=== PATIENT | female | born 1960 | race African-American/Black ===

== ENCOUNTER 2019-04-02 18:19 | Inpatient (IN) | payer OTHER ==
[~2019-04-02] VITALS: Ht 160 cm; Wt 105.7 kg
--- NOTE | ~2019-04-02 | O ---
[facility] [place] [address] OPERATIVE REPORT Name: STONEY OSPINA Room #: 438-P ADM IN M.R.#: [id number] Admission: 04/02/19 Attend Phys: Juan Lamb Discharge: Date of : 58 Report #: [id number] THIS REPORT FOR: cc: Bello Chandler MD,Bello Nair,Ousmane Cottrell MD ~ CC: Juan Chandler DATE OF SERVICE: 04/03/2019 PREOPERATIVE DIAGNOSES: 1. Right ischial pressure ulcer, 10 x 10 cm down to bone. 2. Left ischial pressure ulcer, stage 4, 8 x 8 cm. POSTOPERATIVE DIAGNOSES: 1. Right ischial pressure ulcer, 10 x 10 cm down to bone. 2. Left ischial pressure ulcer, stage 4, 8 x 8 cm. OPERATIONS: 1. Placement of left internal jugular vein central line. 2. Excisional debridement of right ischial tuberosity and pressure ulcer with debridement down through the bone, 10 x 10 cm. 3. Debridement of left ischial tuberosity pressure ulcer, down through muscle, 8 x 8 cm. SURGEON: Ousmane Nair M.D. ANESTHESIA: General. ESTIMATED BLOOD LOSS: Minimal. SPECIMENS: 1. Right ischial wound, deep tissue culture. 2. Right ischial bone biopsy. DESCRIPTION OF PROCEDURE: After informed consent was obtained, the patient was brought to the operating room and placed supine. SCDs were placed and working, preoperative antibiotics were administered, general anesthesia was induced after I placed a central line. This was at a medical necessity as she had no IV access. The left neck was prepped and draped in the usual sterile fashion. Under ultrasound guidance, I cannulated the left internal jugular vein. Wire was placed easily. Dilator was placed. Catheter was placed to 16 cm. It flushed and felice easily. The patient then underwent general anesthesia. She was placed in the left [address] [address] OPERATIVE REPORT Name: STONEY OSPINA Room #: 438-P [facility] IN M.R.#: [id number] Admission: 04/02/19 Attend Phys: Juan Lamb Discharge: Date of : 58 Report #: [id number] lateral decubitus position with all bony prominences protected and an axillary roll. The area was then prepped and draped in the usual sterile fashion. Debridement was then undertaken. On the right side, this was an excisional debridement. Depth was down through the bone; 100% of the wound was debrided. Post-debridement wound area was 10 x 10 cm. I used a rongeur to debride away some of the bone and send it for culture. Deep tissue was excised and sent for culture as well. Examination of the right ischium demonstrated pressure ulcer and this was debrided also. This was excisional. Depth was down through the muscle; 100% of the wound was debrided. Post-debridement wound area was 8 x 8 cm. There were no complications and the wound beds were fair. I packed the wound beds with sterile gauze. Sterile dressings were applied. COMPLICATIONS: None. DISPOSITION: The patient was taken to recovery in satisfactory condition. By: 1803 1820 Ousmane Nair MD /nt
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
[~2019-04-02 18:19] MED LIST: AMARYL4 MG PO; AMBIEN 5 MG TABL5 M1 PO; AMBIEN CR 6.26.25 MG PO; ATORVASTATIN CA40 MG PO; BACLOFEN20 MG PO; BISACODYL SUPP10 MG RECTAL; BUSPAR30 MG PO; CEPACOL SORE T1 EAC7 MM; COLACE100 MG PO; ENOXAPARIN40 MG/0.1 SUBQ; FENTANYL 0.50 MCG/ML IV PUSH; GLUCOPHAGE1000 MG PO; IRON325 PO; LANTUS SUBQ; LEVEMIR SUBQ; LIDODERM 5%1 PATCH TOP; MAG-AL PLUS SUS30 ML PO; MILK OF MA2400 MG/10 PO; MIRALAX17 GM PO; NITROFURANTOIN50 M4 PO; NORCO 10-325 T1 EACH PO; NOVOLOG100 UNIT/1 SUBQ; ONDANSETRON2 MG/1 ML IV; PERCOCET 10-321 EACH PO; PHENASEPTIC1 BOT MUCOUS MEM; PRAVACHOL40 MG PO
--- NOTE | 2019-04-02 18:51 | NUR ---
ASSUMED CARE OF THE PT AT 1800. PT IS A&OX4. NO C/O PAIN. PT IS RA. NO DIET INFORMATION IN SYSTEM YET. CALL LIGHT IS WITHIN REACH, BED IN THE LOWEST POSITION, AND CALL LIGHT IS IWTHIN REACH. WILL CONTINUE TO MONITOR THE PT.
[2019-04-02 20:15] LABS: HEMATOCRIT 26.3 % (37.0-47.0); HEMOGLOBIN 7.7 gm/dL (12.0-15.0); MCH 19.5 pg (26.0-34.0); MCHC 29.2 g/dL (28.0-37.0); PLATELET COUNT 537 thou/uL (150-400); RBC 3.93 mil/uL (4.20-5.00); RDW 19.4 % (10.5-14.5); WBC 14.7 thou/uL (4.0-11.0)
[2019-04-02 20:28] LABS: ALBUMIN 1.8 g/dL (3.4-5.0); CALCIUM 9.2 mg/dL (8.5-10.1); CREATININE 0.7 mg/dL (0.6-1.0); MAGNESIUM 1.4 mg/dL (1.8-2.4); POTASSIUM 3.9 mmol/L (3.5-5.1); TOTAL BILIRUBIN 0.1 mg/dL (<0.1-1.0); TOTAL PROTEIN 7.8 g/dL (6.4-8.2)
[2019-04-02 20:36] VITALS: BP 153/66
[2019-04-02 20:51] LABS: ABSOLUTE NEUTROPHILS 12.9 thou/uL (1.4-8.2); ANISOCYTOSIS 1+
[2019-04-02 20:52] LABS: HYPOCHROMASIA 1+; MICROCYTES 2+; POLYCHROMASIA OCCASIONAL
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
[2019-04-03 08:01] LABS: CALCIUM 8.7 mg/dL (8.5-10.1); CREATININE 0.7 mg/dL (0.6-1.0); MAGNESIUM 1.6 mg/dL (1.8-2.4)
[2019-04-03 08:02] LABS: HEMATOCRIT 26.4 % (37.0-47.0); HEMOGLOBIN 7.8 gm/dL (12.0-15.0); MCH 19.6 pg (26.0-34.0); MCHC 29.4 g/dL (28.0-37.0); MCV 66.7 fL (80.0-100.0); PLATELET COUNT 559 thou/uL (150-400); RBC 3.95 mil/uL (4.20-5.00); WBC 12.8 thou/uL (4.0-11.0)
[2019-04-03 08:10] VITALS: BP 88/45
[2019-04-03 08:47] LABS: ABSOLUTE NEUTROPHILS 10.2 thou/uL (1.4-8.2); ANISOCYTOSIS 2+; HYPOCHROMASIA 2+; MICROCYTES 2+; PLATELET ESTIMATE INCREASED; POLYCHROMASIA SLIGHT
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
--- NOTE | 2019-04-03 10:02 | NUR ---
When diet able to advance s/p surgery, REC limiting meals to 3-4 carb choices per meal with 1500 kcal carb controlled diet to help keep BGs better controlled given wound healing needs.
--- NOTE | 2019-04-03 14:40 | NUR ---
REPORT RECEIVED FROM MARGUERITE BROWN, PT ASSESSED, VSS, BP 88/45, DR ORDERED IVF TO HELP BRING UP BP. PT'S WOUNDS ASSESSED, PICS TAKEN WITH STEPHANIE, DOCUMENTED ON CHART, DISCUSSED PLAN OF CARE WITH PT, SHE VERBALIZED UNDERSTANDING, SURGEON CAME AND SPOKE WITH PT ABOUT DEBRIDMENT. PT LEFT FOR SURGERY ABOUT 1305.
--- NOTE | 2019-04-03 16:47 | NUR ---
PT ADMITTED RELATED TO ISCHIAL WOUND DEBRIDEMENT. CM REVIEWED CHART AND SPOKE WITH CARE TEAM. CM MET WITH PT AT BEDSIDE THIS DAY. PT IS ALERT TO SELF. PT INDICATED SHE LIVES AT A SHELTER BUT COULDN'T RECALL NAME. PT RESIDES AT [facility]. CLINICAL UPDATES SENT TO FACILITY PT HAD I&D THIS DAY. PT INDICATED SHE ANTICIPATES RETURNING TO [place] ONCE MEDICALLY STABLE. IF THEY WANT TO SKILL PT SHE WOULD NEED 3 MIDNIGHTS AND WOULD NEED TO BE HERE UNTIL SATURDAY. IF PT SHOULD BE MEDICALLY STABLE TO DC OVER WEEKEND CONTACT TO NOTIFY AND SET UP TRANSPORT FAX ORDERS TO .
[2019-04-03 20:40] VITALS: BP 127/57
[2019-04-03 23:08] LABS: GLYCOHEMOGLOBIN (HGB A1C) 9.6 % (4.8-5.6)
[2019-04-04 04:30] VITALS: BP 112/53
--- NOTE | 2019-04-04 05:10 | NUR ---
ASSUMED PT CARE AROUND 1900. A&OX4. C/O BACK AND NECK PAIN. PAIN MEDICATION GIVEN. REPOSITIONED TO PREVENT FURTHER SKIN BREAKDOWN. IVF AND IV ABX GIVEN ORDERED. DRESSINGS CHANGED TO SCARUM, RIGHT I.T. AND LEFT I.T. WOUNDS. COLOSTOMY APPLICANCE CHANGED PER PT REQUEST. FALL PRECAUTIONS IN PLACE. PROGRESSING SLOWLY TOWARD POC GOALS.
[2019-04-04 06:22] LABS: HEMATOCRIT 27.4 % (37.0-47.0); HEMOGLOBIN 8.1 gm/dL (12.0-15.0); MCH 19.9 pg (26.0-34.0); MCHC 29.4 g/dL (28.0-37.0); MCV 67.6 fL (80.0-100.0); RBC 4.05 mil/uL (4.20-5.00); RDW 19.1 % (10.5-14.5); WBC 9.6 thou/uL (4.0-11.0)
[2019-04-04 06:34] LABS: % SATURATION 10 % (20-39); IRON 14 ug/dL (50-170); TIBC 143 ug/dL (250-450)
[2019-04-04 07:30] LABS: URINE BILIRUBIN NEGATIVE (Negative); URINE BLOOD NEGATIVE (Negative); URINE COLOR YELLOW; URINE GLUCOSE-RANDOM* NEGATIVE (Negative); URINE KETONES NEGATIVE (Negative); URINE NITRITE-REFLEX NEGATIVE (Negative); URINE SPECIFIC GRAVITY 1.015 (1.005-1.035); URINE UROBILINOGEN 0.2 E.U./dl (0.2-1.0)
[2019-04-04 07:59] VITALS: BP 132/72
[2019-04-04 08:28] LABS: URINE LEUKOCYTES-REFLEX 1+ (Negative)
[2019-04-04 08:29] LABS: URINE CLARITY SL HAZY; URINE PROTEIN (DIPSTICK) 1+ (Negative)
[2019-04-04 08:35] LABS: CASTS None Seen /LPF (None Seen); SQUAMOUS >10 Many /LPF (0-3)
[2019-04-04 08:36] LABS: BACTERIA-REFLEX 1-9 Few /HPF (None Seen); CRYSTALS None Seen /LPF (None Seen); URINE RBC 0-2 Rare /HPF (0-2); URINE WBC-REFLEX 6-15 Few /HPF (0-5)
[2019-04-04 08:37] LABS: MUCUS 0-3 Light strn/LPF (None Seen); WBC CLUMPS Rare (None Seen)
[2019-04-04 08:46] VITALS: BP 132/72
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
[2019-04-04 16:20] VITALS: BP 118/58
--- NOTE | 2019-04-04 18:09 | NUR ---
ASSUMED CARE PT SHIFT CHANGE. ASSESSMENT CHARTED. MEDS GIVEN PER APR. PT ALERT AND ORIENTED. VSS. DENIES PAIN. O2 SATS WNL ON ROOM AIR. NO C/O SOB/CP. PT IS PARAPLEGIC, Q2 TURNS ENFORCED. WOUNDS CHANGED/DRESSED PER ORDERS. PT APPETITE ADEQUATE. BLOOD SUGARS MANAGED WELL. PT VISITED WITH SISTER THIS SHIFT. PT CURRENTLY EATING DINNER IN BED, DENIES OF NEEDS/CONCERNS AT THIS TIME. WILL CONT TO MONITOR AND FOLLOW POC.
[2019-04-04 19:05] VITALS: BP 107/53
--- NOTE | 2019-04-04 22:56 | NUR ---
1855 ASSUMED CARE OF PT AFTER BEDSIDE REPORT 2100 ASSESSMENT COMPLETED, BANDAGES TO SACRAL AREA WOUNDS IN PLACE C/D/I PRESSURE AREA TO RHEEL CLOSED WITH NO OPEN AREA, CLIENT WILL BE TURNED Q2 HOURS TO PREVENT CONTINUED PRESSURE TO SACRAL AREA, SCD'S ON, FALL PRECAUTIONS IN PLACE. IV INFUSING WITH NO DIFFICULTY. PT EATING SNACK PRIOPR TO INSULIN GLARG PER APR. COLOSTOMY WITH SMALL AMOUNT OF SOFT BROWN STOOL, SUPRAPUBIC CATH DRAINING WITH ADEQUATE URINE, WILL CONTINUE WITH HOURLY ROUNDING.
[2019-04-05 05:00] VITALS: BP 132/59
[2019-04-05 07:51] LABS: HEMATOCRIT 24.3 % (37.0-47.0); HEMOGLOBIN 7.1 gm/dL (12.0-15.0); MCH 19.6 pg (26.0-34.0); MCHC 29.1 g/dL (28.0-37.0); MCV 67.2 fL (80.0-100.0); RBC 3.61 mil/uL (4.20-5.00); RDW 19.4 % (10.5-14.5); WBC 8.2 thou/uL (4.0-11.0)
[2019-04-05 08:13] LABS: PLATELET COUNT 519 thou/uL (150-400)
[2019-04-05 10:26] LABS: ABSOLUTE NEUTROPHILS 5.3 thou/uL (1.4-8.2); ANISOCYTOSIS 2+
[2019-04-05 10:27] LABS: HYPOCHROMASIA 3+; MICROCYTES 2+
--- NOTE | 2019-04-05 15:23 | NUR ---
VSS-AFEBRILE. LUNGS CLEAR-ROOM AIR. ALERT AND ORIENTED X 4. CHANGED COCCYX DRESSING TWICE THIS SHIFT DUE TO SATURATED DRESSING. DRAINAGE IS SEROSANGUINEOUS, AND THERE WAS NO ODOR. TURNED EVERY TWO HOURS TO AVOID PRESSURE TO THE AREA. BED BATH AND LINEN CHANGE. ORAL PAIN MEDICATION PARTIALLY RELIEVES NECK AND BACK DISCOMFORT. GOOD APPETITE. CALLS APPROPRIATELY FOR ANY NEEDED ASSISTANCE.
[2019-04-05 17:31] VITALS: BP 111/54
[2019-04-05 19:10] VITALS: BP 124/44
--- NOTE | 2019-04-06 03:24 | NUR ---
ASSUMED PT CARE AT 1900. PT REPORTS MINIMAL PAIN, JUST UNCOMFORTABLE IN BACK. PM MEDS GIVEN, ANTIBIOTICS INFUSING PER ORDER. COLOSTOMY AND SAINI WITH GOOD OUTPUT. NEW IV PLACED IN LEFT CHEST DUE TO PAIN AT OTHER SITE. CURRENTLY RESTING COMFORTABLY IN BED.
[2019-04-06 04:33] VITALS: BP 122/53
[2019-04-06 07:38] VITALS: BP 123/53
[2019-04-06 08:06] LABS: HEMATOCRIT 24.2 % (37.0-47.0); HEMOGLOBIN 7.3 gm/dL (12.0-15.0); MCH 20.2 pg (26.0-34.0); MCHC 30.1 g/dL (28.0-37.0); MCV 66.9 fL (80.0-100.0); RBC 3.61 mil/uL (4.20-5.00); RDW 19.4 % (10.5-14.5); WBC 9.7 thou/uL (4.0-11.0)
--- NOTE | 2019-04-06 12:41 | NUR ---
ASSUMED CARE OF THE PT AT 0700. PT IS BEDREST. COLOSTOMY CHANGED AND DRAINED. SKIN FOLDS CHANGED UNDER MOHAN BREATS AND ABD. WOUNDS ARE DRY AND INTACT, NO ODOR. LINENS CHANGED. BS CONTROLLED BY INSULIN. SKIN WARM TO TOUCH, WITH NO NEW WOUNDS NOTICED. CALL LIGHT WITHIN REACH, BED IN LOWEST POSITION AND FALL PRECAUTIONS IN PLACE. WILL CONTINUE TO MONITOR THE PT.
--- NOTE | 2019-04-06 13:10 | NUR ---
FAXED CLINICAL UPDATE TO [facility] SPOKE WITH KATIE IN ADM SHE RECEIVED UPDATE. DP TO FOLLOW.
--- NOTE | 2019-04-06 19:16 | NUR ---
VAT CONSULTED FOR A PICC FOR LT HOME ABX. A 4FRSLPICC PLACED IN LUABASILIC VEIN. CXR REVEALS THE TIP AT THE [facility] AND RELEASED FOR USE. PLEASE SEE INSERTION NI FOR DETAILS
[2019-04-06 19:28] VITALS: BP 132/53
[2019-04-07 03:20] VITALS: BP 120/53
--- NOTE | 2019-04-07 03:47 | NUR ---
ASSESSED AT START OF SHIFT PT A&OX4 WITH C/O OF BACK AND NECK PAIN. EVENING MEDS GIVEN AND PT GORDON IT FINE SEE EMAR. PICC LINE INTACT AND ABX INFUISING. WOUND DRESSING CHANGE DONE ON SACRUM. SUPRAPUBIC CATH AND PRAFO BOOTS IN PLACE. PT REPOSITIONED FOR COMFORT. FALL PREC IN PLACE AND CALL LIGHT IN REACH WILL CONT WITH POC TILL EOS.
[2019-04-07 08:00] VITALS: BP 120/57
[2019-04-07] MEDS ORDERED: LANTUS SUBQ (10:38)
[2019-04-07] MEDS ORDERED: HUMALOG100 UNIT/1 SUBQ (10:39)
[2019-04-07 11:00] VITALS: BP 115/55
--- NOTE | 2019-04-07 11:02 | NUR ---
PT CARE ASSUMED AT 0700. A&Ox4. ACHS WITH NO COVERAGE NEEDED THIS AM. SHORT ACTING HELD, LONG ACTING ADMINISTERED BY SN PADILLA. Q2 TURNS. HBG TRENDING UP FROM 7.1 YESTERDAY TO 7.3 TODAY. DRESSING CHANGE DONE ON SCRUM SEE WOUND INTERVENTIONS. PARAPLEGIC. COLOSTOMY, SUPRAPUBIC CATHETER IN PLACE. PAIN MEDICATION IN PLACE AND PAIN MANAGED WELL WITH MEDS ON BOARD. PALAFOY BOOTS AND LOW AIRLOSS MATRESS. PT IS TO DISCHARGE BACK TO [facility]. FALL PROTOCOLL IN PLACE. CALL LIGHT WITHIN REACH. WILL CONTINUE TO MONITOR.
[2019-04-07 14:45] VITALS: BP 122/50
--- NOTE | 2019-04-07 15:02 | NUR ---
PT DISCHARGING BACK TO [facility] FAXED DC ORDERS/SUMMARY TO FACILITY SPOKE WITH KATIE IN ADM SHE RECEIVED ORDERS AND DOES NOT HAVE TRANSPORTATION ([facility]) AVAILABLE FOR TRANSPORT SCHEDULED TRANSPORT WITH [facility] FOR 4:00-4:30. NOTIFIED PT'S SISTER LISSA OF DC AND TIME OF TRANSPORT. UNIT NOTIFIED AND CHART COPY PER US. RN TO CALL REPORT TO [phone].
--- NOTE | 2019-04-07 15:03 | NUR ---
Patient oriented x4, color appropriate for race. patient has DM. First dose of Lispro insulin not needed, due to do BS of 93. Bedbath was given. after lunch, dressing changes done. Right heel small healing wound, cleansed and boot reapplied. Right IT wound Appeared deep with purulent edges, vascular bed seeping with blood, cleansed with normal saline and packed with Dakens soaked gauze, ABD applied. Left IT wound appeared smaller compared to Right IT. only a small ammount of packing applied, covered with ABD. Sacral cleaned with NS and Dakens. Goal was to be discharged, will not be discharged due to changes in wound managment.
--- NOTE | 2019-04-07 15:22 | NUR ---
I have reviewed and concur with student documentation.
== END 2019-04-07 17:42 | DRG 622 ==
LOC: 4S 18:19
PROVIDERS: Internal Medicine; Nurse Practitioner; Specialist; Surgery; ADMIT Hospitalist
PROC: 02HV33Z Insertion of Infusion Device into Superior Vena Cava, Percutaneous Approach (ICD-10-PCS; principal; 2019-04-03)
PROC: 0QB20ZZ Excision of Right Pelvic Bone, Open Approach (ICD-10-PCS; 2019-04-03)
PROC: 0KBP0ZZ Excision of Left Hip Muscle, Open Approach (ICD-10-PCS; 2019-04-03)
DX: E11.622 Type 2 diabetes mellitus with other skin ulcer (principal); L89.314 Pressure ulcer of right buttock, stage 4; E43 Unspecified severe protein-calorie malnutrition; L89.324 Pressure ulcer of left buttock, stage 4; L89.153 Pressure ulcer of sacral region, stage 3; L89.894 Pressure ulcer of other site, stage 4; M86.18 Other acute osteomyelitis, other site; G82.20 Paraplegia, unspecified; E11.69 Type 2 diabetes mellitus with other specified complication; L89.90 Pressure ulcer of unspecified site, unspecified stage; E11.40 Type 2 diabetes mellitus with diabetic neuropathy, unspecified; E78.5 Hyperlipidemia, unspecified; E11.319 Type 2 diabetes mellitus with unspecified diabetic retinopathy without macular edema; I10 Essential (primary) hypertension; S99.821A Other specified injuries of right foot, initial encounter; X58.XXXA Exposure to other specified factors, initial encounter; L89.890 Pressure ulcer of other site, unstageable; L13.0 Dermatitis herpetiformis; K59.00 Constipation, unspecified; E83.42 Hypomagnesemia; D50.9 Iron deficiency anemia, unspecified; L89.610 Pressure ulcer of right heel, unstageable; Z79.84 Long term (current) use of oral hypoglycemic drugs; Z79.891 Long term (current) use of opiate analgesic; Y93.89 Activity, other specified; Y92.89 Other specified places as the place of occurrence of the external cause; Z74.01 Bed confinement status; Z86.718 Personal history of other venous thrombosis and embolism; Z79.01 Long term (current) use of anticoagulants; Z98.1 Arthrodesis status; Z93.0 Tracheostomy status; Z93.3 Colostomy status; Z88.0 Allergy status to penicillin; Y99.8 Other external cause status; Z79.899 Other long term (current) drug therapy
CPT/HCPCS: 10102; 27000; 50010; 50101; 57091; 62110; 62900; 70005

== ENCOUNTER 2019-08-23 10:13 | Emergency (ER) | payer OTHER ==
[~2019-08-23] VITALS: Ht 160 cm; Wt 113.4 kg
[~2019-08-23 10:13] MED LIST changes: +HUMALOG100 UNIT/1 SUBQ
[2019-08-23 10:21] VITALS: BP 104/61
[2019-08-23] MEDS ORDERED: TYLENOL325 MG PO (10:58)
[2019-08-23] MEDS ORDERED: SUPER THERAVIT1 EACH PO (10:59)
[2019-08-23] MEDS ORDERED: BACLOFEN 10MG T10 MG PO (11:00)
[2019-08-23] MEDS ORDERED: ASA81BEC PO (11:00)
[2019-08-23] MEDS ORDERED: CELEXA 20 MG TA20 MG PO (11:00)
[2019-08-23] MEDS ORDERED: DAKIN'S473 M2 TOP (11:05)
[2019-08-23 11:32] LABS: HEMATOCRIT 24.2 % (37.0-47.0); HEMOGLOBIN 7.2 gm/dL (12.0-15.0); MCH 20.2 pg (26.0-34.0); MCHC 29.8 g/dL (28.0-37.0); MCV 67.6 fL (80.0-100.0); PLATELET COUNT 527 thou/uL (150-400); RBC 3.57 mil/uL (4.20-5.00); RDW 21.1 % (10.5-14.5); WBC 16.8 thou/uL (4.0-11.0)
[2019-08-23 11:36] LABS: ANION GAP 7 mmol/L (7-16); BUN 28 mg/dL (7-18); CALCIUM 8.3 mg/dL (8.5-10.1); CHLORIDE 98 mmol/L (98-107); CO2 29 mmol/L (21-32); GLUCOSE 393 mg/dL (74-106); POTASSIUM 3.6 mmol/L (3.5-5.1); SODIUM 134 mmol/L (136-145)
[2019-08-23 11:41] LABS: ALBUMIN 1.7 g/dL (3.4-5.0); DIRECT BILIRUBIN < 0.1 mg/dL (<0.1-0.2); SGOT 17 U/L (15-37); SGPT 11 U/L (30-65); TOTAL BILIRUBIN 0.1 mg/dL (0.2-1.0); TOTAL PROTEIN 6.6 g/dL (6.4-8.2)
[2019-08-23] MEDS ORDERED: GRALISE600 MG PO (11:50)
[2019-08-23 12:18] LABS: ABSOLUTE NEUTROPHILS 14.6 thou/uL (1.4-8.2)
[2019-08-23 12:19] LABS: ANISOCYTOSIS 2+; HYPOCHROMASIA 2+; TARGET CELLS 2+
[2019-08-23] MEDS ORDERED: MUCINEX600 MG PO (13:12)
[2019-08-23] MEDS ORDERED: LEVEMIR100 UNIT/1 SUBQ (13:13)
[2019-08-23] MEDS ORDERED: LORAZEPAM 0.50.5 MG PO (13:14)
[2019-08-23 13:53] LABS: URINE BILIRUBIN NEGATIVE (Negative); URINE BLOOD 3+ (Negative); URINE CLARITY CLOUDY; URINE COLOR YELLOW; URINE GLUCOSE-RANDOM* NEGATIVE (Negative); URINE KETONES NEGATIVE (Negative); URINE LEUKOCYTES-REFLEX 1+ (Negative); URINE NITRITE-REFLEX NEGATIVE (Negative); URINE PROTEIN (DIPSTICK) 2+ (Negative); URINE SPECIFIC GRAVITY 1.015 (1.005-1.035)
[2019-08-23 14:23] LABS: BACTERIA-REFLEX 1-9 Few /HPF (None Seen); SQUAMOUS None Seen /LPF (0-3); URINE RBC 3-10 Few /HPF (0-2); URINE WBC-REFLEX 0-5 Rare /HPF (0-5)
[2019-08-23 14:24] LABS: CRYSTALS None Seen /LPF (None Seen)
--- NOTE | 2019-08-23 14:45 | NUR ---
vascular access consulted for picc line. pavel vessels too small for picc placement. CESAR vessels deep, brachial was widely patent with USG, 5fr tl power picc trimmed to 46cm inserted to 1cm external. CXR showed line up jugular, attempted to power flush and reposition but unable to get picc to drop. 2nd CXR continues to be up neck. Line pulled back to be midline and labeled as Midline NOT PICC. Sarika EVERETT aware of position. Released for immediate use per protocol as a midline.
--- NOTE | 2019-08-23 19:10 | NUR ---
HAVE RECIEVED MULTIPLE CALLS FROM [facility] REGARDING PT STATUS DR HANNA HAS TALKED TO DPOA, DAUGHTER LISTED, TALKED WITH KWESI, SISTER UPDATED HER AND HAVE REQUESTED [facility] DIRECT CALLS TO DAUGHTER.
[2019-08-23 19:40] VITALS: BP 110/42
--- NOTE | 2019-08-23 23:37 | NUR ---
RECIEVED CALL FROM LAB THAT PRELIMINARY BLOOD CULTURE REPORT SHOWED GRAM NEGATIVE RODS QUICKLY OBSERVED ON GROWTH MEDIUM, CONTACTED [address] CHARGE NURSE AND COPY OF PRELIMINARY REPORT SUCCESSFULLY TRANSMITTED TO [address] [place] [address] VIA FAX
--- NOTE | 2019-08-24 07:58 | EKG ---
[facility] [place] [address] ELECTROCARDIOGRAM REPORT Name: STONEY OSPINA Room #: DEP [facility]#: [id number] Admission: 08/23/19 Attend Phys: Discharge: 08/23/19 Date of : 58 Report #: [id number] THIS REPORT FOR: cc: Bello Chandler MD, Srinath MD Lundgren,Kana Womack MD [facility] THIS REPORT FOR: //name// [facility] ED Test Date: 2019-08-23 Test Time: 10:55:36 Pat Name: STONEY OSPINA Department: Room: [facility] Gender: F Supervisor [employer]: : 1960 Requested By: Ashok Mason Order Number: [id number] MD: Kana Cartagena Measurements Intervals [place] Rate: 124 P: 71 AR: 130 QRS: 34 QRSD: 75 T: 58 QT: 315 QTc: 453 Interpretive Statements Sinus tachycardia Otherwise no significant abnormality Compared to ECG 10/04/2014 14:41:40 No significant change was found Electronically Signed On 08-24-2019 7:58:25 CDT by Kana Cartagena [email or web address] <ELECTRONICALLY SIGNED> By: Kana Cartagena MD, FACC 08/24/19 0758 1055 1055 Kana Cartagena MD, [facility] /EPI
== END 2019-08-23 17:00 | disposition short-term general hospital (02) ==
LOC: ER 10:13 → EROBS 12:40 → ER 17:00
PROVIDERS: Emergency Medicine
DX: A41.9 Sepsis, unspecified organism (principal); L89.94 Pressure ulcer of unspecified site, stage 4; T83.9XXA Unspecified complication of genitourinary prosthetic device, implant and graft, initial encounter; E11.9 Type 2 diabetes mellitus without complications; E78.5 Hyperlipidemia, unspecified; Z86.73 Personal history of transient ischemic attack (TIA), and cerebral infarction without residual deficits; Z79.4 Long term (current) use of insulin; Z79.899 Other long term (current) drug therapy; Z88.0 Allergy status to penicillin; Z20.828 Contact with and (suspected) exposure to other viral communicable diseases
CPT/HCPCS: 27000

== ENCOUNTER 2020-02-04 00:26 | Emergency (ER) | payer OTHER ==
[~2020-02-04] VITALS: Ht 160 cm; Wt 103.9 kg
[~2020-02-04 00:26] MED LIST changes: +ASA81BEC PO; +BACLOFEN 10MG T10 MG PO; +CELEXA 20 MG TA20 MG PO; +DAKIN'S473 M2 TOP; +GRALISE600 MG PO; +LEVEMIR100 UNIT/1 SUBQ; +LORAZEPAM 0.50.5 MG PO; +MUCINEX600 MG PO; +SUPER THERAVIT1 EACH PO; +TYLENOL325 MG PO
[2020-02-04 01:00] LABS: HEMOGLOBIN 6.9 gm/dL (12.0-15.0); RBC 4.19 mil/uL (4.20-5.00); WBC 13.9 thou/uL (4.0-11.0)
[2020-02-04 01:01] LABS: HEMATOCRIT 24.9 % (37.0-47.0); MCH 16.5 pg (26.0-34.0); MCHC 27.8 g/dL (28.0-37.0); MCV 59.3 fL (80.0-100.0); RDW 21.3 % (10.5-14.5)
[2020-02-04 01:03] LABS: ANION GAP 11 mmol/L (7-16); BUN 19 mg/dL (7-18); CALCIUM 9.7 mg/dL (8.5-10.1); CHLORIDE 102 mmol/L (98-107); CO2 29 mmol/L (21-32); CREATININE 0.6 mg/dL (0.6-1.0); GLUCOSE 144 mg/dL (74-106); POTASSIUM 4.2 mmol/L (3.5-5.1); SODIUM 142 mmol/L (136-145)
[2020-02-04 01:08] LABS: INR 1.1; PROTIME 11.3 Seconds (9.3-11.4)
[2020-02-04 01:12] LABS: TROPONIN-I <0.06 ng/mL (<0.06)
[2020-02-04] MEDS ORDERED: VITAMIN C500 M2 PO (03:51)
[2020-02-04] MEDS ORDERED: CARVEDILOL12.5 MG PO (03:51)
[2020-02-04] MEDS ORDERED: DOCUSATE SODIU100 MG PO (03:52)
[2020-02-04] MEDS ORDERED: GRALISE600 MG PO (03:52)
[2020-02-04] MEDS ORDERED: OXYCODONE HCL E10 MG PO (03:53)
[2020-02-04] MEDS ORDERED: BACLOFEN 10MG T10 MG PO (03:55)
[2020-02-04] MEDS ORDERED: ASA81BEC PO (03:56)
[2020-02-04] MEDS ORDERED: FERREX 150150 MG PO (03:56)
[2020-02-04] MEDS ORDERED: CELEXA 10 MG TA10 M1 PO (03:56)
[2020-02-04] MEDS ORDERED: PROTONIX40 M2 PO (03:57)
[2020-02-04] MEDS ORDERED: LANTUS SUBQ (03:57)
[2020-02-04] MEDS ORDERED: HUMALOG100 UNIT/1 SUBQ (03:58)
[2020-02-04 05:39] VITALS: BP 106/51; BP 107/65; BP 95/56
--- NOTE | 2020-02-04 07:22 | EKG ---
[place] [address] [address] [facility] [place] [address] ELECTROCARDIOGRAM REPORT Name: STONEY OSPINA Room #: REG [facility]#: [id number] Admission: 02/04/20 Attend Phys: Discharge: Date of : 58 Report #: [id number] [facility] ED Test Date: 2020-02-04 Test Time: 01:59:26 Pat Name: STONEY OSPINA Department: Room: Gender: F Support Teacher: [email or web address] : 1960 Requested By: Ashvin Marinelli Order Number: [id number] MD: Chai Huang Measurements Intervals [place] Rate: 84 P: 49 TX: 153 QRS: 42 QRSD: 78 T: 84 QT: 389 QTc: 460 Interpretive Statements Sinus rhythm Borderline low voltage, extremity leads Nonspecific T abnormalities, lateral leads Baseline wander in lead(s) V1,V2,V3 Compared to ECG 08/23/2019 10:55:36 T-wave abnormality now present ST (T wave) deviation now present Sinus tachycardia no longer present Electronically Signed On 02-04-2020 7:21:49 [employer] by Chai Huang [email or web address] <ELECTRONICALLY SIGNED> By: Chai Huang MD, FACC 02/04/20 0721 0159 [id number] Chai Huang MD, FAC /EPI
[2020-02-04 08:02] LABS: HEMATOCRIT 25.9 % (37.0-47.0); HEMOGLOBIN 7.4 gm/dL (12.0-15.0); MCH 18.1 pg (26.0-34.0); MCHC 28.7 g/dL (28.0-37.0); MCV 63.2 fL (80.0-100.0); RBC 4.09 mil/uL (4.20-5.00); RDW 24.8 % (10.5-14.5); WBC 11.2 thou/uL (4.0-11.0)
[2020-02-04 08:07] VITALS: BP 107/65
== END 2020-02-04 09:47 ==
LOC: ER 00:26
PROVIDERS: Emergency Medicine
DX: D64.9 Anemia, unspecified (principal); R06.02 Shortness of breath; E11.40 Type 2 diabetes mellitus with diabetic neuropathy, unspecified; E78.5 Hyperlipidemia, unspecified; Z93.3 Colostomy status; Z20.828 Contact with and (suspected) exposure to other viral communicable diseases; Z86.718 Personal history of other venous thrombosis and embolism; Z79.899 Other long term (current) drug therapy; Z79.82 Long term (current) use of aspirin; Z79.4 Long term (current) use of insulin; Z88.0 Allergy status to penicillin; Z88.8 Allergy status to other drugs, medicaments and biological substances

== ENCOUNTER → 2021-04-06 | Outpatient (CLI) | payer OTHER ==
[~2021-04-06] MED LIST changes: +CARVEDILOL12.5 MG PO; +CELEXA 10 MG TA10 M1 PO; +DOCUSATE SODIU100 MG PO; +FERREX 150150 MG PO; +OXYCODONE HCL E10 MG PO; +PROTONIX40 M2 PO; +VITAMIN C500 M2 PO
== END ==
LOC: HYPER 08:35
PROVIDERS: ATTEND Emergency Medicine
DX: E11.622 Type 2 diabetes mellitus with other skin ulcer (principal); L89.154 Pressure ulcer of sacral region, stage 4; L98.491 Non-pressure chronic ulcer of skin of other sites limited to breakdown of skin; L89.313 Pressure ulcer of right buttock, stage 3; L89.323 Pressure ulcer of left buttock, stage 3; L98.411 Non-pressure chronic ulcer of buttock limited to breakdown of skin; G82.22 Paraplegia, incomplete; E66.01 Morbid (severe) obesity due to excess calories; I11.0 Hypertensive heart disease with heart failure; I50.9 Heart failure, unspecified; F41.9 Anxiety disorder, unspecified; F32.9 Major depressive disorder, single episode, unspecified; K21.9 Gastro-esophageal reflux disease without esophagitis; Z79.82 Long term (current) use of aspirin; Z93.3 Colostomy status; Z79.4 Long term (current) use of insulin; Z68.41 Body mass index [BMI] 40.0-44.9, adult